=== PATIENT | female | born 1965 | race Hispanic/Latino ===

== ENCOUNTER 2017-04-04 08:52 | Outpatient (CLI) | payer BC | END 2017-04-04 08:53 | disposition home or self-care (01) | LOC: BICMAMMO 08:52 | PROVIDERS: ATTEND Family Medicine | DX: Z12.31 Encounter for screening mammogram for malignant neoplasm of breast (principal); N64.59 Other signs and symptoms in breast; R92.1 Mammographic calcification found on diagnostic imaging of breast; Z80.3 Family history of malignant neoplasm of breast | CPT/HCPCS: 77063 ==

== ENCOUNTER 2017-05-02 08:00 | Outpatient (CLI) | payer BC | END 2017-05-02 08:01 | disposition home or self-care (01) | LOC: BICMAMMO 08:00 | PROVIDERS: ATTEND Family Medicine | DX: N63.10 Unspecified lump in the right breast, unspecified quadrant (principal) | CPT/HCPCS: G0279 ==

== ENCOUNTER → 2017-06-01 | Day surgery (SDC) | payer BC ==
--- NOTE | 2017-06-01 09:33 | MMO ---
EXAM: IMAGING GUIDANCE FOR RIGHT BREAST STEREOTACTIC BIOPSY: HISTORY: Right breast calcifications. COMPARISON: 05/02/17. FINDINGS: Imaging guidance is provided for Dr. Saucedo to perform the biopsy. Please refer to separate biopsy report for further detail. The patient's calcifications were identified after the patient was placed in prone position. Biopsy was performed by Dr. Saucedo. Post-biopsy images demonstrate the clip to be outside of the needle. IMPRESSION: Successful imaging guidance for a right breast stereotactic biopsy. POS: LUIS EDUARDO
--- NOTE | 2017-06-02 06:59 | OP ---
DATE OF PROCEDURE: 06/01/2017 PREOPERATIVE DIAGNOSIS: Right breast clustered microcalcifications. POSTOPERATIVE DIAGNOSIS: Right breast clustered microcalcifications. OPERATION PERFORMED: Sterotactic right breast biopsy with a localizing clip placement. SURGEON: Dr. Vinay Saucedo RADIOLOGIST: Dr. Yazmin Crowell ANESTHESIA: 1% lidocaine with epinephrine buffered with sodium bicarbonate. INDICATIONS: The patient is a 51-year-old female. She presented for a recent mammography, which revealed potentially concerning clustered microcalcifications in the right breast. She is take n to the stereotactic suite for biopsy at this time. Of note, she has relatively small breasts and t he calcifications are located posteriorly, close to the chest wall and this was recognized to be pote ntially concerning location. DESCRIPTION OF PROCEDURE: Informed consent was obtained. The patient was taken to the stereotactic suite where she was placed in the prone position on the stereotactic imaging table. A medial to late ral projection was selected and the calcifications were identified per Dr. Crowell. These coordinates were transmitted to the biopsy table. The appropriate side of the breast was prepped with Betadine a nd local anesthetic infiltrated. A small stab incision was created and the sterotactic needle was ad vanced into the breast. There was some concern regarding the ability to pass the needle adequately i nto the breast secondary to the relatively small size of the breast. Instead we selected a fire loca tion that was 2 mm less than that recommended by the localization process. This was to prevent strik ing the back plate. Pre and post-fire images were obtained. The needle appeared to be well situated in regards to the ca lcifications. A circumferential series of 6 vacuum-assisted biopsies were obtained in the usual [facility] ion. These were submitted for specimen mammography, which revealed evidence of microcalcifications w ithin the biopsy specimen. A localizing clip was subsequently placed. This was confirmed with the s tereotactic imaging system. The needle was then withdrawn. There was no significant bleeding from t he site and the patient tolerated the procedure nicely. Steri-Strips were placed over the small inci joyce. Post-procedure mammogram was obtained. There were no complications. The patient tolerated th e procedure well and was discharged home. She will follow up in my office in about a week to discuss pathology results and inspect the biopsy site.
--- NOTE | 2017-06-03 10:33 | MMO ---
SPECIMEN RADIOGRAPH: Date: 06/01/17 HISTORY: Specimen radiograph. FINDINGS: Calcifications are present. IMPRESSION: Calcifications are present. POS: OFF
--- NOTE | 2017-06-03 10:33 | MMO ---
POST BIOPSY MAMMOGRAM: Date: 06/01/17 HISTORY: Post biopsy mammogram. FINDINGS: Clip is appropriately located. The previously noted calcifications are not evident. IMPRESSION: Post biopsy mammogram. POS: OFF
== END ==
LOC: MAMMO 06:40
PROVIDERS: ATTEND Specialist
PROC: 0HBT3ZX Excision of Right Breast, Percutaneous Approach, Diagnostic (ICD-10-PCS; principal; 2017-06-01)
DX: N60.11 Diffuse cystic mastopathy of right breast (principal)
CPT/HCPCS: 19081; 76098; 88305